=== PATIENT | female | born 1960 | race Caucasian/White ===

== ENCOUNTER 2016-10-13 00:20 | Emergency (ER) | payer MEDICAID ==
--- NOTE | 2016-11-15 16:17 | ER ---
ADMIT: 10/13/2016 RM/LOC: ER [facility] MR#: [id number] [address] [id number] YEE WAGNER [address] [place] [address] Emergency Room Report SEX: F AGE: 55 : 1960 DATE: 10/13/2016 ADDENDUM: This patient comes into the ER with back pain. She denies any injury, but she has had several back issues in the past and this feels like her normal back pain. Her pain is in her thoracic back area between her shoulder blades. She has not taken any medication at home. In the emergency room, she was given Flexeril and Cherry Log. I wrote a prescription for Flexeril, and she is to follow up with her primary as needed. DIAGNOSIS: Thoracic back sprain. Please see my T-sheet. AMADO Ortez / Ubaldo Mojica MD / modl JOB #: [id number] CC: Ubaldo Mojica MD, Attending Physician Marycruz Morin MD, Family Physician
== END 2016-10-13 00:57 | disposition home or self-care (01) ==
LOC: ER 00:20
DX: S29.012A Strain of muscle and tendon of back wall of thorax, initial encounter (principal); E11.9 Type 2 diabetes mellitus without complications; F17.210 Nicotine dependence, cigarettes, uncomplicated; Z88.6 Allergy status to analgesic agent; Z79.899 Other long term (current) drug therapy; X58.XXXA Exposure to other specified factors, initial encounter